=== PATIENT | male | born 1955 | race Caucasian/White ===

== ENCOUNTER 2024-03-16 12:17 | Outpatient (OUT) | payer OTHER, SELFPAY ==
--- NOTE | 2024-03-16 12:34 | XR_ITS ---
The [address] [address] Patient Name: BARBARA LANDA MRN: [id number] date: 1955 Sex: M Assigned Patient Location: [facility] Current Patient Location: Accession/Order Number: [id number] Exam Date: 03/16/2024 12:35 Report Date: 03/17/2024 07:32 At the request of: NON-STAFF PHYSICIAN Procedure: XR chest 2V EXAMINATION: XR chest 2V HISTORY: Asthma J45.909 COMPARISON: XR chest 08/01/2022 FINDINGS: LUNGS: No significant pulmonary parenchymal abnormalities. VASCULATURE: No increased pulmonary vasculature. PLEURA: No pneumothorax, effusion, or pleural thickening. CARDIAC: No cardiomegaly or cardiac silhouette abnormality. MEDIASTINUM: No visible mass or adenopathy. BONES: Stable slight anterior wedging of several mid-lower thoracic vertebral bodies; degenerative versus remote mild compression fractures. OTHER: Negative. XR/XR chest 2V IMPRESSION: 1. No acute cardiopulmonary process. 2. Hyperexpanded lungs compatible with history of asthma and/or COPD. Electronically authenticated by: SHELBY LOJA Date: 03/17/2024 07:32
--- NOTE | 2024-03-16 13:08 | RT_ITS ---
The [facility] Test Date: 2024-03-16 Pat Name: BARBARA LANDA Department: Room: - Gender: Male Aluminum Pourer: Mariana Eckert RRT : 1955 Requested By: [id number] Order Number: [id number] Reading MD: Robert Ramirez Interpretive Statements Spirometry was completed according to ATS criteria. Findings were considered accurate and reproducible. Both pre- and post-bronchodilator values utilized for spirometry. -FEV1/FVC: Reduced @ 69% -FEV1: Moderately reduced @ 69% -FVC: Mildly reduced @ 73% -XZW95-45%: Reduced @ 55% -There is a partial bronchodilator response in FVC which meets >200mL increase but <12% change. Impressions: -Spirometry suggests moderate obstruction with no significant bronchodilator response, which can be seen in conditions such as COPD. Clinical correlation required. Electronically Signed On 03-17-2024 16:39:50 EDT by Robert Ramirez
[2024-03-16] MEDS: ALBUTEROL SULFATE 2.5 MG/3 ML VIAL NEB IH (13:55)
== END 2024-03-16 12:18 | disposition home or self-care (01) ==
DX: J45.909 Unspecified asthma, uncomplicated (principal)
CPT/HCPCS: 71046; 94060